=== PATIENT | male | born 1950 | race Caucasian/White ===

== ENCOUNTER 2019-07-23 07:21 | Day surgery (SDC) | payer OTHER ==
[2019-07-20 14:47] VITALS: BMI 27.7
[2019-07-23 08:24] LABS: #Basophils 0.1 thou/uL (0.0-0.2); #Eosinphils 0.2 thou/uL (0.0-0.7); #Lymphocytes 4.4 thou/uL (1.20-3.40); #Monocytes 0.7 thou/uL (0.11-0.59); #Neutrophils 4.9 thou/uL (1.40-6.50); %Basophils 1.3 % (0.0-1.0); %Eosinophils 2.2 % (0.0-10.0); %Lymphocytes 42.9 % (21.0-51.0); %Monocytes 6.3 % (0.0-10.0); %Neutrophils 47.3 % (42.0-75.0); Hemoglobin 15.3 g/dL (14.0-18.0); Mean Corpuscular HGB CONC 33.6 g/dL (32.0-36.0); Mean Corpuscular Hemoglobin 31.1 pg (27.0-31.0); Mean Corpuscular Volume 92.5 fL (78.0-98.0); Mean Platelet Volume 8.8 fL (7.4-10.4); Platelet Count 197 thou/uL (130-400); Red Blood Cell (RBC) Count 4.93 mill/uL (4.70-6.10); White Blood Cell (WBC) Count 10.2 thou/uL (4.8-10.8)
[2019-07-23 08:43] LABS: Anion Gap 9 mmol/L (10-20); BUN (Urea Nitrogen) 15 mg/dL (8.4-25.7); Calc. Creatinine Clearance 52 mL/min (70-130); Calcium 9.5 mg/dL (7.8-10.44); Carbon Dioxide 30 mmol/L (23-31); Chloride 105 mmol/L (98-107); Estimated GFR-MDRD 37; Glucose 112 mg/dL (80-115); Potassium 4.7 mmol/L (3.5-5.1); Sodium 139 mmol/L (136-145)
[2019-07-23] MEDS ORDERED: Fentanyl 100 MCG/2 ML VIAL ONE (09:28)
[2019-07-23] MEDS ORDERED: Sodium Chloride 0.9% 10 ML ONE (09:30)
[2019-07-23] MEDS ORDERED: Bupivacaine/Epinephrine 0.5% 10 ML VIAL ONE ×2 (09:30→09:31)
[2019-07-23] MEDS ORDERED: Ketorolac Tromethamine 30 MG/ML VIAL ONE (09:52)
[2019-07-23] MEDS ORDERED: Esmolol 100 MG/10 ML VIAL ONE (09:52)
[2019-07-23] MEDS ORDERED: Glycopyrrolate 0.2 MG/ML 5 ML SYRINGE ONE (09:52)
[2019-07-23] MEDS ORDERED: Dexamethasone 20 MG/5 ML VIAL ONE (09:52)
[2019-07-23] MEDS ORDERED: PHENYLEPHRINE-NS 100 MCG/ML 10 ML SYRINGE ONE (09:52)
[2019-07-23] MEDS ORDERED: PROPOFOL 200 MG/20 ML VIAL ONE (09:52)
[2019-07-23] MEDS ORDERED: Lidocaine 1% PF 5 ML VIAL ONE (09:52)
[2019-07-23] MEDS ORDERED: Rocuronium Bromide 10 MG/ML (10ML VIAL) ONE (09:52)
[2019-07-23] MEDS ORDERED: Ondansetron PF 4 MG/2 ML Vial ONE (09:52)
--- NOTE | 2019-07-23 11:10 | OP ---
DATE OF PROCEDURE: 07/23/2019 GEOGRAPHIC INFORMATION SYSTEM SURVEYOR: Jax Rayo PA-C PROCEDURE PERFORMED: Removal of dorsal column stimulator electrodes, removal of pulse generator. DESCRIPTION OF PROCEDURE: The patient was brought to the operating room and intubated. He was rolled in a prone position on gel-filled chest rolls. The incision over the pulse generator was reopened as was the incision over the thoracic insertion site. We removed the pulse generator without difficulty. We identified the site of suturing to the fascia of the thoracodorsal fascia, removed the suture and removed the entire wiring system without difficulty. The wound was then extensively irrigated and MAC hemostasis was secured. Vancomycin powder was applied and the wounds were closed in anatomic layers. Job ID: [id number]
[2019-07-23] MEDS ORDERED: Tamsulosin HCl 0.4 MG CAP ONE (11:23)
== END 2019-07-23 12:45 | disposition home or self-care (01) ==
LOC: SDC 07:21
PROVIDERS: ATTEND Neurological Surgery
PROC: 00PU0MZ Removal of Neurostimulator Lead from Spinal Canal, Open Approach (ICD-10-PCS; principal; 2019-07-23)
PROC: 0JPT0MZ Removal of Stimulator Generator from Trunk Subcutaneous Tissue and Fascia, Open Approach (ICD-10-PCS; principal; 2019-07-23)
DX: M48.062 Spinal stenosis, lumbar region with neurogenic claudication (principal); E78.5 Hyperlipidemia, unspecified; Z79.899 Other long term (current) drug therapy; Z88.7 Allergy status to serum and vaccine
CPT/HCPCS: 36415; 76000; 80048; 85025; 93005; 93010; J0690; J1100; J1885; J2001; J2405; J2704; J3010; J3490